=== PATIENT | female | born 1950 | race Caucasian/White ===

== ENCOUNTER → 2021-06-16 | Emergency (ER) | payer OTHER ==
[~2021-06-16] VITALS: Ht 167.6 cm; Wt 70.3 kg
[~2021-06-16] MED LIST: CEFADROXIL500 MG PO; COZAAR50 MG PO; HYZAAR 50/12.51 TAB PO; MEGESTROL ACETA40 MG PO; OSTERA TABLET1 EACH PO; PERCOCET 5/3251 TAB PO; SYNTHROID75 MCG PO; SYNTHROID88 MCG PO; URETRON D-S TAB1 TAB PO
== END | disposition home or self-care (01) ==
LOC: ER 11:24
DX: N39.0 Urinary tract infection, site not specified (principal); R50.9 Fever, unspecified; Z11.52 Encounter for screening for COVID-19